=== PATIENT | female | born 1990 | race African-American/Black ===

== ENCOUNTER 2017-06-18 14:19 | Emergency (ER) | payer SELFPAY ==
[2017-06-18 14:30] VITALS: BP 128/78; PULSE 89; TEMP 98.1; BMI 31.6
[2017-06-18] MEDS ORDERED: IBUPROFEN 400 MG TABLET (FP) PO ONE ×2 (16:21→16:38)
--- NOTE | 2017-06-18 16:34 | PDOC ---
History of Present Illness - General Chief Complaint: Pain Stated Complaint: RT ARM PAIN Time Seen by Provider: 06/18/17 15:52 History Source: Patient Exam Limitations: No Limitations - History of Present Illness Initial Comments: 06/18/17 16:24 This 27-year-old woman past medical history of asthma who presents to the emergency department today with 1 month of right upper back pain. Patient states that approximately one month ago she woke up with the pain in her right upper back and us aggressively gotten worse over the past month. She reports decrease in range of motion secondary to pain as a result. She denies any trauma , direct blow, chest pain, shortness of breath, fevers, chills, abdominal pain. 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 Past History - Past Medical History Allergies/Adverse Reactions: Allergies Allergy/AdvReac Type Severity Reaction Status Date / Time acetaminophen [From Percocet] Allergy Verified 06/18/17 14:30 aspirin Allergy sob Verified 06/18/17 16:10 oxycodone HCl [From Percocet] Allergy Verified 06/18/17 14:30 Home Medications: Ambulatory Orders Cyclobenzaprine HCl [Flexeril 10 mg] 10 mg PO BID PRN #20 tablet 06/18/17 Asthma: Yes COPD: No - Suicide/Smoking/Psychosocial Hx Smoking History: Never smoked Have you smoked in the past 12 months: No Information on smoking cessation initiated: No Hx Alcohol Use: No Drug/Substance Use Hx: No Substance Use Type: None Review of Systems - Review of Systems Able to Perform ROS?: Yes Is the patient limited Green[place]ic proficient: No Constitutional: No: Symptoms Reported HEENTM: No: Symptoms Reported Respiratory: No: Symptoms reported Cardiac (ROS): No: Symptoms Reported ABD/GI: No: Symptoms Reported : No: Frequency Musculoskeletal: Yes: See HPI Integumentary: No: Symptoms Reported Neurological: No: Symptoms reported *Physical Exam - Vital Signs Last Vital Signs Temp Pulse Resp BP Pulse Ox 98.1 F 89 17 128/78 100 06/18/17 14:28 06/18/17 14:28 06/18/17 14:28 06/18/17 14:28 06/18/17 14:28 - Physical Exam General Appearance: Yes: Appropriately Dressed. No: Apparent Distress HEENT: positive: EOMI, SIS, Normal ENT Inspection Neck: positive: Trachea midline, Supple. negative: Tender Respiratory/Chest: positive: Lungs Clear, Normal Breath Sounds. negative: Chest Tender, Respiratory Distress, Accessory Muscle Use Cardiovascular: positive: Regular Rhythm, Regular Rate, S1, S2, Edema ( dependent edema to RUE). negative: Murmur Gastrointestinal/Abdominal: positive: Normal Bowel Sounds, Soft. negative: Tender Musculoskeletal: positive: Normal Inspection. negative: CVA Tenderness Extremity: positive: Normal Capillary Refill, Normal Inspection. 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 negative: Numbness, Sensory Deficit Medical Decision Making - Medical Decision Making 06/18/17 16:40 A/P: 27-year-old woman with history of asthma who presents with atraumatic right upper back pain approximately one month ago. Palpable muscle spasm to right upper back at the level of the fifth rib. Patient is very tender in that area and does not allow full examination. Lungs CTAB. Differential diagnoses include occult rib fracture, muscle spasm, ligamentous or muscular tear I will obtain a urine test. I will give the patient 800 mg of Motrin. Patient states she has an aspirin ALLERGY but is taking Motrin the past without any reaction. I well get an x-ray of the right ribs. After all testing is done I will reevaluate the patient for pain relief and if everything is normal I will refer her to an orthopedist for further evaluation. 06/18/17 17:53 Wet read of x-ray by me: No obvious fracture to visualized osseous structures. Patient with minimal relief after Motrin I will give patient 5 mg of Valium orally now. Patient is not driving home and is with a responsible adult. I will discharge the patient after receiving the Valium. *DC/Admit/Observation/Transfer Diagnosis at time of Disposition: Muscle spasm of back - Discharge Dispostion Disposition: HOME Condition at time of disposition: Stable Admit: No - Prescriptions Prescriptions: Cyclobenzaprine HCl [Flexeril 10 mg] 10 mg PO BID PRN #20 tablet PRN Reason: Back Pain - Referrals Referrals: Cesar Aguirre MD [Staff Physician] - - Patient Instructions Additional Instructions: Take Flexeril as prescribed. Take Motrin or Tylenol as directed by manufacturers instructions for pain. You've been given a referral from orthopedist if symptoms do not resolve these contact orthopedist for continued workup. Make an appointment with your regular doctor for further evaluation if symptoms do not resolve in the next 3 days. Return to emergency department for numbness and tingling of the right arm, inability to move the right shoulder, severe pain, or any other concerns. Thank you very much for choosing us to provide your emergent healthcare needs. - Post Discharge Activity
[2017-06-18] MEDS ORDERED: diazePAM 5 MG TABLET PO ONE (17:52)
[2017-06-18] MEDS ORDERED: diazePAM 5 MG TABLET ONE (17:56)
== END 2017-06-18 18:11 | disposition home or self-care (01) ==
LOC: JERFT 14:19
DX: M62.830 Muscle spasm of back (principal)
CPT/HCPCS: 71101-TC-RT; 84703; 99281-25

== ENCOUNTER 2020-10-04 01:38 | Emergency (ER) | payer SELFPAY ==
[2020-10-04] MEDS ORDERED: ALBUTEROL SO4 2.5/IPRATROPIUM 0.5 INH SOL 3 ML VIAL.NEB. NEB ONE ×3 (01:51→02:44)
[2020-10-04] MEDS ORDERED: DEXAMETHASONE SOD PHOSPHATE 10 MG/1 ML VIAL IVPUSH ONE (02:14)
[2020-10-04 02:31] VITALS: TEMP 98.3; BMI 37.9
[2020-10-04] MEDS ORDERED: DEXAMETHASONE SOD PHOSPHATE 10 MG/1 ML VIAL ONE (02:44)
[2020-10-04] MEDS ORDERED: ALBUTEROL SO4 0.083% IH SOL 2.5 MG/3 ML VIAL.NEB. NEB ONE ×2 (03:37→03:51)
[2020-10-04 04:06] LABS: BASO % 0.5 % (0-2.0); EOS % 2.3 % (0-4.5); HEMATOCRIT 36.5 % (32.4-45.2); HEMOGLOBIN 12.4 GM/dL (10.7-15.3); LYMPH % 28.2 % (8-40); MCH 30.1 pg (25.7-33.7); MCHC 33.9 g/dl (32.0-36.0); MEAN CELL VOLUME 88.7 fl (80-96); MEAN PLT VOLUME 7.7 fl (7.5-11.1); MONO % 4.3 % (3.8-10.2); NEUT % 64.7 % (42.8-82.8); PLATELET COUNT 406 K/MM3 (134-434); RBC 4.12 M/mm3 (3.60-5.2); RDW 12.9 % (11.6-15.6); WHITE BLOOD COUNT 9.5 K/mm3 (4.0-10.0)
[2020-10-04 05:04] LABS: POTASSIUM 3.7 mmol/L (3.5-5.1)
[2020-10-04 05:06] LABS: CALCIUM 8.9 mg/dL (8.5-10.1)
[2020-10-04 05:07] LABS: ALBUMIN 3.7 g/dl (3.4-5.0)
[2020-10-04 05:10] LABS: CREATININE 0.6 mg/dL (0.55-1.3)
[2020-10-04 05:12] LABS: BILIRUBIN,TOTAL 0.3 mg/dL (0.2-1); TOT PROT 7.4 g/dl (6.4-8.2)
[2020-10-04 06:35] VITALS: BP 111/63; PULSE 106
== END 2020-10-04 06:36 | disposition home or self-care (01) ==
LOC: JER 01:38
PROC: 3E0F7GC Introduction of Other Therapeutic Substance into Respiratory Tract, Via Natural or Artificial Opening (ICD-10-PCS; principal; 2020-10-04)
PROC: 3E033GC Introduction of Other Therapeutic Substance into Peripheral Vein, Percutaneous Approach (ICD-10-PCS; principal; 2020-10-04)
DX: J45.21 Mild intermittent asthma with (acute) exacerbation (principal)
CPT/HCPCS: 36415; 80053; 84703; 85025; 99284-25; J1100

== ENCOUNTER 2022-03-19 08:31 | Emergency (ER) | payer OTHER ==
[2022-03-19 08:46] VITALS: BP 117/70; PULSE 85; RESP 17; TEMP 97.8; BMI 37.9
[2022-03-19] MEDS ORDERED: KETOROLAC TROMETHAMINE 30 MG/1 ML VIAL IM ONE (09:26)
[2022-03-19] MEDS ORDERED: KETOROLAC TROMETHAMINE 30 MG/1 ML VIAL ONE (09:31)
[2022-03-19] MEDS ORDERED: LIDOCAINE 5% TOPICAL PATCH TP ONE (09:51)
[2022-03-19] MEDS ORDERED: LIDOCAINE 5% TOPICAL PATCH ONE (10:04)
[2022-03-19] MEDS ORDERED: LIDOCAINE PATCH REMOVAL MC SCH (22:00)
== END 2022-03-19 10:20 | disposition home or self-care (01) ==
LOC: JERFT 08:31
PROC: 3E0233Z Introduction of Anti-inflammatory into Muscle, Percutaneous Approach (ICD-10-PCS; principal; 2022-03-19)
DX: M54.6 Pain in thoracic spine (principal)
CPT/HCPCS: 72070-TC-FY; 72100-TC-FY; 99284-25